=== PATIENT | female | born 1970 | race Caucasian/White ===

== ENCOUNTER 2022-04-14 17:52 | Emergency (ER) | payer BC, MEDICAID, SELFPAY ==
[~2022-04-14] VITALS: Ht 157.5 cm; Wt 81.8 kg
[2022-04-14] MEDS ORDERED: FLUORESCEIN SODIUM 1 MG STRIP OU ONE (19:15)
[2022-04-14] MEDS ORDERED: PROPARACAINE HCL 0.5% 15 ML OPHTHALMIC SOLUTION OU ONE (19:15)
[2022-04-14 22:00] VITALS: BP 127/73
== END 2022-04-14 23:05 | disposition home or self-care (01) ==
LOC: EMS 18:01
DX: H10.212 Acute toxic conjunctivitis, left eye (principal); F10.20 Alcohol dependence, uncomplicated
CPT/HCPCS: 99283